=== PATIENT | female | born 1990 | race Two or more races ===

== ENCOUNTER 2019-06-07 23:04 | Emergency (ER) | payer OTHER ==
[~2019-06-07] VITALS: Ht 154.9 cm; Wt 61.7 kg
[2019-06-07] MEDS ORDERED: PRENATABS FA T1 EACH (23:39)
== END 2019-06-08 02:53 | disposition home or self-care (01) ==
LOC: ER 23:04
DX: O20.0 Threatened abortion (principal)

== ENCOUNTER → 2019-06-11 | Outpatient (CLI) | payer OTHER ==
[~2019-06-11] MED LIST: PRENATABS FA T1 EACH
== END | disposition home or self-care (01) ==
LOC: PRENATAL 14:00
DX: O36.80X1 Pregnancy with inconclusive fetal viability, fetus 1 (principal); O26.851 Spotting complicating pregnancy, first trimester

== ENCOUNTER → 2019-08-07 | Outpatient (CLI) | payer OTHER | END | disposition home or self-care (01) | LOC: PRENATAL 07-25 09:00 | DX: O35.0XX1 Maternal care for (suspected) central nervous system malformation in fetus, fetus 1 (principal); Z34.02 Encounter for supervision of normal first pregnancy, second trimester ==

== ENCOUNTER → 2019-10-23 | Outpatient (CLI) | payer OTHER | END | disposition home or self-care (01) | LOC: PRENATAL 09:50 | PROVIDERS: ATTEND Obstetrics & Gynecology | DX: O26.843 Uterine size-date discrepancy, third trimester (principal); O36.8131 Decreased fetal movements, third trimester, fetus 1; O35.0XX1 Maternal care for (suspected) central nervous system malformation in fetus, fetus 1 ==

== ENCOUNTER 2019-12-01 09:22 | Inpatient (IN) | payer OTHER ==
[~2019-12-01] VITALS: Ht 157.5 cm; Wt 78.9 kg
[2019-12-03] MEDS ORDERED: Tylenol #3 PO (08:46)
== END 2019-12-03 13:16 | disposition home or self-care (01) | DRG 807 ==
LOC: LDR 09:22 → OB/GYN 20:07
PROVIDERS: ADMIT Obstetrics & Gynecology; ATTEND Obstetrics & Gynecology
PROC: 10E0XZZ Delivery of Products of Conception, External Approach (ICD-10-PCS; principal; 2019-12-01)
PROC: 0KQM0ZZ Repair Perineum Muscle, Open Approach (ICD-10-PCS; 2019-12-01)
PROC: 3E033VJ Introduction of Other Hormone into Peripheral Vein, Percutaneous Approach (ICD-10-PCS; 2019-12-01)
PROC: 4A1HXCZ Monitoring of Products of Conception, Cardiac Rate, External Approach (ICD-10-PCS; 2019-12-01)
DX: O70.1 Second degree perineal laceration during delivery (principal); Z37.0 Single live birth; Z3A.38 38 weeks gestation of pregnancy; Z20.828 Contact with and (suspected) exposure to other viral communicable diseases